=== PATIENT | male | born 1995 | race Caucasian/White ===

== ENCOUNTER 2021-07-27 17:34 | Emergency (ER) | payer OTHER | END 2021-07-27 19:40 | disposition home or self-care (01) | LOC: MED 17:34 | DX: S01.91XA Laceration without foreign body of unspecified part of head, initial encounter (principal); Z53.21 Procedure and treatment not carried out due to patient leaving prior to being seen by health care provider; X58.XXXA Exposure to other specified factors, initial encounter; Y93.89 Activity, other specified; Y92.89 Other specified places as the place of occurrence of the external cause; Y99.8 Other external cause status ==

== ENCOUNTER 2021-08-03 17:21 | Emergency (ER) | payer OTHER ==
[~2021-08-03] VITALS: Ht 170.2 cm; Wt 53.1 kg
[2021-08-03 17:27] VITALS: BP 106/56
--- NOTE | 2021-08-03 17:32 | NUR ---
PT AMBULATED TO BED 5
--- NOTE | 2021-08-03 17:34 | NUR ---
26 Y/O M BIB SELF FROM HOME, RECHECK FOR STAPLE REMOVAL ON FRONTAL HEAD. JOHN WERE PUT IN 7 DAYS AGO. DENIES DISCHARGE OR INCREASED PAIN. STATES HE WILL GET BERTRAND FROM TIME TO TIME 10/17. DENIES PAIN AT THIS TIME PMH: DENIES [facility]: DENIES
[2021-08-03 17:51] VITALS: BP 106/56
--- NOTE | 2021-08-03 17:52 | NUR ---
Patient discharged with v/s stable. Written and verbal after care instructions given and explained. Patient verbalized understanding. Ambulatory with steady gait. All questions addressed prior to discharge. Advised to follow up with PMD.
== END 2021-08-03 17:52 | disposition home or self-care (01) ==
LOC: MED 17:21
DX: S01.01XD Laceration without foreign body of scalp, subsequent encounter (principal); X58.XXXD Exposure to other specified factors, subsequent encounter
CPT/HCPCS: 99281